=== PATIENT | female | born 1940 | race Caucasian/White ===

== ENCOUNTER → 2017-03-04 | Outpatient (CLI) | payer OTHER ==
[~2017-03-04] MED LIST: ACET-1311 PO; ASPI81TA28 PO; CHOL400T; CYAN500T PO; MULT-506 PO; NRN/300 PO; OMEG10007 PO; vitamin d 3 PO
== END | disposition home or self-care (01) ==
LOC: C.LABMFLN 08:47
PROVIDERS: ATTEND Physician Assistant
DX: J02.9 Acute pharyngitis, unspecified (principal)

== ENCOUNTER → 2017-06-12 | Outpatient (CLI) | payer OTHER ==
[2017-06-12 13:37] LABS: HEMATOCRIT 38.5 % (37-47); MEAN CELL VOLUME 100.5 fL (80-100); MEAN CORPUSCULAR HEMOGLOBIN 35.8 pg (25-34); MEAN CORPUSCULAR HGB CONC 35.6 g/dl (32-36); MEAN PLATELET VOLUME 11.5 fL (7.4-10.4); PLATELET COUNT 205 K/uL (130-400); RED BLOOD COUNT 3.83 M/uL (4.2-5.4); WHITE BLOOD COUNT 5.27 K/uL (4.8-10.8)
[2017-06-12 13:43] LABS: ALT/SGPT 21 U/L (12-78); AST/SGOT 22 U/L (15-37); BLOOD UREA NITROGEN 14 mg/dl (7-18); BUN/CREATININE RATIO 21.4 (10-20); CALCIUM 8.7 mg/dl (8.5-10.1); CARBON DIOXIDE 28 mmol/L (21-32); CHLORIDE 109 mmol/L (98-107); CREATININE 0.67 mg/dl (0.60-1.20); GLUCOSE 86 mg/dl (70-99); POTASSIUM 4.2 mmol/L (3.5-5.1); SODIUM 143 mmol/L (136-145)
[2017-06-12 13:54] LABS: ALKALINE PHOSPHATASE 88 U/L (45-117); CHOLESTEROL 243 mg/dl (0-200); CHOLESTEROL/HDL RATIO 3.9; HDL CHOLESTEROL 62 mg/dl; LDL CHOLESTEROL CALCULATED 160 mg/dl; TRIGLYCERIDES 105 mg/dl (0-150); VERY LOW DENSITY LIPOPROT CALC 21 mg/dl
[2017-06-12 13:58] LABS: COMPLETE YES; EOSINOPHIL % 1.7 %; LYMPH ABS # 1.65 K/uL (1.2-3.4); LYMPHOCYTE % 31.3 %; NEUTROPHILS % 35.7 %; ROULEAUX 1+; VARIANT LYM ABS # 1.33 K/uL; VARIANT LYMPHOCYTE % 25.2 %
== END | disposition home or self-care (01) ==
LOC: C.LABMFLN 08:55
PROVIDERS: ATTEND Family Medicine
DX: G60.9 Hereditary and idiopathic neuropathy, unspecified (principal); E78.5 Hyperlipidemia, unspecified

== ENCOUNTER → 2017-06-17 | Outpatient (CLI) | payer OTHER ==
--- NOTE | 2017-06-25 13:03 | CODING QUERY MEDICAL NECESSITY ---
SUPPORTING DIAGNOSIS NEEDED A supporting diagnosis is required for the test/procedure performed on this patient in order for us to be reimbursed by the patient's insurance. Please provide a supporting diagnosis for the following test/procedure listed below next to the test name along with your signature. *If there is no additional diagnosis for this patient that would support the following test/procedure please document that below next to the test/procedure. Test(s)/Procedure(s) that require a supporting diagnosis: * VITAMIN B12 DIAGNOSIS: * FOLIC ACID DIAGNOSIS: Provider Signature: Date: Thank you Fabienne [place] [employer] Once completed, please kindly fax back to [phone] For questions please call [phone]
== END | disposition home or self-care (01) ==
LOC: C.LABMFLN 09:10
PROVIDERS: ATTEND Family Medicine
DX: D75.89 Other specified diseases of blood and blood-forming organs (principal)

== ENCOUNTER 2022-08-22 09:08 | Observation (INO) ==
--- NOTE | 2022-07-15 16:03 | PAT Medication Instructions ---
Medication Instructions Date of Service July 15, 2022 Home Medications Medication Instructions Recorded cholecalciferol (vitamin D3) 25 1,000 units PO DAILY #90 tabs 06/20/19 mcg (1,000 unit) tablet cyanocobalamin (vitamin B-12) 500 500 mcg PO DAILY #90 tabs 06/20/19 mcg tablet multivitamin (Multiple Vitamins 1 tab PO DAILY #90 tabs 06/20/19 tablet) omega-3 acid ethyl esters 1 gram 2 cap PO DAILY #180 caps 06/20/19 capsule gabapentin 300 mg capsule 300 mg PO BID #180 caps 04/29/22 cholecalciferol (vitamin D3) 25 mcg (1,000 unit) tablet 1,000 units PO DAILY cyanocobalamin (vitamin B-12) 500 mcg tablet 500 mcg PO DAILY multivitamin (Multiple Vitamins tablet) 1 tab PO DAILY omega-3 acid ethyl esters 1 gram capsule 2 cap PO DAILY acetaminophen 500 mg tablet 500 - 1,000 mg PO BID PRN gabapentin 300 mg capsule 300 mg PO BID STOP taking 2 weeks before surgery omega-3 acid ethyl esters 1 gram capsule 2 cap PO DAILY DO NOT take the morning of surgery cholecalciferol (vitamin D3) 25 mcg (1,000 unit) tablet 1,000 units PO DAILY cyanocobalamin (vitamin B-12) 500 mcg tablet 500 mcg PO DAILY multivitamin (Multiple Vitamins tablet) 1 tab PO DAILY Take morning of surgery With a small sip of water, OTHERWISE NOTHING TO EAT OR DRINK AFTER MIDNIGHT: acetaminophen 500 mg tablet 500 - 1,000 mg PO BID PRN(if needed) gabapentin 300 mg capsule 300 mg PO BID Take evening before surgery acetaminophen 500 mg tablet 500 - 1,000 mg PO BID PRN(if needed) gabapentin 300 mg capsule 300 mg PO BID Other Notes If you have any questions please call us at [phone] or [phone] or [phone] or [phone]
--- NOTE | 2022-07-22 11:31 | Anesthesiology Consultation ---
Date of Service July 22, 2022 Assessment & Plan (1) Encounter for pre-operative examination: - COVID screening: Per assessment on 07/22: No known COVID-19 positive contacts or current COVID-19 related symptoms. Travel screen negative. Patient vaccinated. At surgeon discretion if preop Covid testing being done. - Outpatient joint assessment: Pt currently scheduled for inpatient pathway. If surgeon requests review for outpatient joint pathway, patient is not recommended candidate for outpatient joint program. Chart Review Chart Review: Acceptable Risk for Surgery and Patient seen in Pre Admission Testing Teaching & Discussion Pre-Anesthesia Teaching/Discussion Notes: Instructed NPO after midnight before surgery,except medications with 15 cc of water. Medication instructions provided according to the PAT guidelines. History Surgery Operation Date: 08/22/22 07:00 Proposed Procedures p Right Total Shoulder Arthroplasty Reverse - Karlos Land DO Height/Weight Height: 5 ft 5 in Weight: 84.1 kg Allergies Allergy/AdvReac Type Severity Reaction Status Date / Time morphine Allergy Severe Shortness Verified 07/21/22 12:33 of breath azithromycin [From Zithromax] Allergy Mild Rash Verified 07/15/22 12:17 NSAIDS (Non-Steroidal Allergy Mild Rash Verified 07/15/22 12:17 Anti-Inflamma atorvastatin [From Lipitor] AdvReac Mild Muscle Pain Verified 07/15/22 12:17 simvastatin AdvReac Mild Muscle Verified 07/21/22 12:33 aches Medications Home Medications Medication Instructions Recorded Confirmed Last Taken cholecalciferol (vitamin D3) 25 1,000 units PO DAILY #90 tabs 06/20/19 07/15/22 Unknown mcg (1,000 unit) tablet cyanocobalamin (vitamin B-12) 500 500 mcg PO DAILY #90 tabs 06/20/19 07/15/22 Unknown mcg tablet multivitamin (Multiple Vitamins 1 tab PO DAILY #90 tabs 06/20/19 07/15/22 Unknown tablet) omega-3 acid ethyl esters 1 gram 2 cap PO DAILY #180 caps 06/20/19 07/15/22 Unknown capsule acetaminophen 500 mg tablet 500 - 1,000 mg PO BID PRN Pain 02/28/21 07/15/22 Unknown gabapentin 300 mg capsule 300 mg PO BID #180 caps 04/29/22 07/15/22 Unknown Past Medical History Medical History Essential tremor Right hand Fibromyalgia Generalized osteoarthritis of multiple sites H/O deep venous thrombosis 2007 post-op (b/l TKA) > was on coumadin for period of time (since discontinued) History of COVID-19 Dx 03/26/2022, no current issues History of pulmonary embolism 2007 post-op (b/l TKA) > was on coumadin for period of time (since discontinued) History of skin cancer Forehead Hyperlipidemia Idiopathic peripheral neuropathy Mitral regurgitation Dx rheumatic fever as child Hx MVP but not visualized on most recent 2020 echo, trivial MR noted Exercise / Class Metabolic Activity II 4-5 Yardwork/Stairs/Walk up hill (one FS (No CP, no SOB)) Past Family History Family History Father Diabetes Mother Breast cancer Other No family history of adverse response to anesthesia Past Surgical History Surgical History H/O colonoscopy History of tonsillectomy History of tooth extraction History of total bilateral knee replacement Nausea after anesthesia S/P appendectomy S/P cataract extraction RT/LEFT S/P cholecystectomy S/P tubal ligation Past Anesthesia History No Hx of Anesthesia Complications (except remote post-op nausea) and No Family Hx of Anesthesia Complications History of PONV History of PONV (remote post-op nausea) and Hx of Motion Sickness (Remote hx) Social History Smoking Status: Never smoker Do You Dip or Chew Tobacco: No Hx Alcohol Use: Yes Alcohol type: beer alcohol intake frequency: holidays/special occasions only Hx Substance Use: No substance use type: does not use Review of Systems Patient denies chest pain, shortness of breath, dyspnea on exertion, fever, chills, cough, wheezing, palpitations. Physical Exam Vital Signs VITALS BP 102/69 (bp typically low-normal range per pt) P 69 TEMP 98.3 SP02 93%RA RESP 16 PHYSICAL Full cervical extension range of motion. Full TMJ range of motion. TMD 3 finger breaths Mallampati Score 2 Dentition: intact, implants (molars) Lungs: clear throughout to auscultation Cardiac: regular rate and rhythm, II/ systolic murmur Spine: normal Carotid arteries: negative bruit Extremities: no edema Right hand tremor Lab Results Anesthesia Preop Results Results Anesthesia Widget: WBC 6.59 K/ul (4.8-10.8) 07/22/22 Hgb 13.9 g/dl (12.0-16.0) 07/22/22 Hct 42.4 % (34.1-44.9) 07/22/22 Plt 243 K/uL (130-400) 07/22/22 Na 140 mmol/L (136-145) 07/22/22 K 5.0 mmol/L (3.5-5.1) 07/22/22 Cl 106 mmol/L (98-107) 07/22/22 CO2 30 mmol/L (21-32) 07/22/22 BUN 19 mg/dl (6-23) 07/22/22 Creat 0.76 mg/dl (0.6-1.2) 07/22/22 Glucose Level 80 mg/dl (70-99(Fasting)) 07/22/22 PT 10.1 Seconds (9.0-12.0) 07/22/22 PTT 24.5 Seconds (21.0-31.0) 07/22/22 INR 0.9 (0.9-1.1) 07/22/22 Blood Type B Positive 07/22/22 Antibody Screen NEGATIVE 07/22/22 Testing Electrocardiogram Date: 07/22/22 NSR at 65bpm. Chest X-Ray Date: 07/22/22 Findings: + NAD Echocardiogram Date: 03/15/21 EF 65 to 70%. No regional wall motion abnormality. AV sclerosis. Compared to prior study 06/18/2017, mitral prolapse is not visualized on current study and MR now appears trivial. Grade 1 diastolic dysfunction. COVID-19 Risk Screen Screening Information COVID-19 Screen Date: 07/22/22 Exposure 21 Days Family/Household +COVID Last 21 Days: No Exposure 10 Days Any COVID Exposure Last 10 Days: No Symptoms Last 10 Days Experienced COVID Sx Last 10 Days: No + COVID 0-90 Days COVID + in Last 0-90 Days: No
--- NOTE | 2022-08-21 08:27 | History & Physical Report ---
Date of Service August 21, 2022 Assessment & Plan (1) Rotator cuff tear arthropathy of right shoulder: We will proceed with a right reverse shoulder arthroplasty. Postoperatively she will be placed in a sling and kept overnight in the hospital for postop medical management. She plans to use [facility] upon discharge. History of Present Illness Chief Complaint: Cuff tear arthropathy of the right shoulder. Primary Care Provider: Courtney Ibarra MD Charla is a pleasant 81-year-old female whohas been dealing with chronic worsening right shoulder pain. We have an MRI which shows cuff arthropathy. I have been giving her serial injections. The injections are not helping as much anymore. She is having trouble doing activities away from her body or up overhead. She is really struggling with the right shoulder. After failing extensive conservative treatment, she has elected to proceed with a right reverse shoulder arthroplasty. Allergies Allergy/AdvReac Type Severity Reaction Status Date / Time morphine Allergy Severe Shortness Verified 07/21/22 12:33 of breath azithromycin [From Zithromax] Allergy Mild Rash Verified 07/15/22 12:17 NSAIDS (Non-Steroidal Allergy Mild Rash Verified 07/15/22 12:17 Anti-Inflamma atorvastatin [From Lipitor] AdvReac Mild Muscle Pain Verified 07/15/22 12:17 simvastatin AdvReac Mild Muscle Verified 07/21/22 12:33 aches Home Medications Medication Instructions Recorded Confirmed Type cholecalciferol (vitamin D3) 25 1,000 units PO DAILY #90 tabs 06/20/19 07/15/22 Rx mcg (1,000 unit) tablet cyanocobalamin (vitamin B-12) 500 500 mcg PO DAILY #90 tabs 06/20/19 07/15/22 Rx mcg tablet multivitamin (Multiple Vitamins 1 tab PO DAILY #90 tabs 06/20/19 07/15/22 Rx tablet) omega-3 acid ethyl esters 1 gram 2 cap PO DAILY #180 caps 06/20/19 07/15/22 Rx capsule acetaminophen 500 mg tablet 500 - 1,000 mg PO BID PRN Pain 02/28/21 07/15/22 History gabapentin 300 mg capsule 300 mg PO BID #180 caps 04/29/22 07/15/22 Rx Past Med/Surg History Medical History Essential tremor Right hand Fibromyalgia Generalized osteoarthritis of multiple sites H/O deep venous thrombosis 2007 post-op (b/l TKA) > was on coumadin for period of time (since discontinued) History of COVID-19 Dx 03/26/2022, no current issues History of pulmonary embolism 2007 post-op (b/l TKA) > was on coumadin for period of time (since discontinued) History of skin cancer Forehead Hyperlipidemia Idiopathic peripheral neuropathy Mitral regurgitation Dx rheumatic fever as child Hx MVP but not visualized on most recent 2020 echo, trivial MR noted Surgical History H/O colonoscopy History of tonsillectomy History of tooth extraction History of total bilateral knee replacement Nausea after anesthesia S/P appendectomy S/P cataract extraction RT/LEFT S/P cholecystectomy S/P tubal ligation Family History Father Diabetes Mother Breast cancer Other No family history of adverse response to anesthesia Social History Smoking Status: Never smoker Second Hand Exposure: No; Hx Alcohol Use: Yes Alcohol type: beer Alcohol Intake Frequency Comment: occasionally Hx Substance Use: No Preferred Language: Mongolian Reel Tender Required: No Beliefs That Will Affect Care: None marital status: Current Living Situation: Spouse Feels Safe at Home: Yes Dental Care, Regularly: Yes Physical Activity Frequency: 3-4 Times per Week Physical Activity Frequency Comment: aerobics, swimming Seatbelt Use: always Review of Systems All systems reviewed & are unremarkable except as noted in HPI & below. Physical Exam On physical examination of the right shoulder, she has about 140 degrees of forward elevation 140 degrees of abduction. She has 4-5 motion at the full can test and external rotation. Pain over the glenohumeral joint line.. Constitutional WD/WN, vitals as above Eyes PERRL, conjunctivae normal, anicteric sclerae ENMT external ear and nose normal, oropharynx normal Neck trachea midline, no thyromegaly Respiratory normal respiratory effort, lungs clear to auscultation Cardiovascular RRR, no murmur, no edema Gastrointestinal (Abdomen) normal bowel sounds, soft, nontender, no hepatosplenomegaly Skin no rashes, warm and dry Psychiatric A+Ox3, euthymic affect Results & Data Results & Data Laboratory Results . Diagnostic Findings X-rays of the right shoulder show slight superior migration of the humeral head on the glenoid. There is some osteoarthritis. MRI of the right shoulder shows a massive chronic retracted rotator cuff tear of the right shoulder.. PG Care Time/CCT Total # of Minutes Spent Total Time Spent with Patient: Total time spent is greater than 50% in coordination of care (as documented) at patient's floor/unit and/or counseling patient: Coding Level of Care Code None Diagnoses Rotator cuff tear arthropathy of right shoulder M75.101; M12.811
[~2022-08-22 09:08] MED LIST changes: -ACET-1311 PO; +ACETAMINOPHEN 500 MG TAB PO SCH; -ASPI81TA28 PO; +BUPIVACAINE 0.5 % 5 MG/1 ML PF 10ML VIAL ONE; -CHOL400T; -CYAN500T PO; +FAMOTIDINE 20 MG TAB PO SCH; +GABAPENTIN 300 MG CAP PO SCH; +LR 15ML/HR IV SCH; +LR 60ML/HR IV SCH; -MULT-506 PO; -NRN/300 PO; -OMEG10007 PO; +ORTHO JOINT MIX INFIL SCH; +TRANEXAMIC ACID 1,000 MG **IV Intra-op IV SCH; +TRANEXAMIC ACID 1,000 MG **IV Pre-op IV SCH; +[UNRECOGNIZED DRUG - REMARK] SCH; +ceFAZolin 2000MG 2,000 MG/15 ML SYR IV SCH; +dexAMETHasone 4 MG TAB PO SCH; -vitamin d 3 PO
[2022-08-22] MEDS ORDERED: PROPOFOL IV EMULSION 10 MG/ML 20 ML VIAL IV ONE (10:15)
[2022-08-22] MEDS ORDERED: DEXAMETHASONE SOD INJ 4 MG/ML VIAL ONE (10:15)
[2022-08-22] MEDS ORDERED: KETOROLAC 30 MG/ML VIAL ONE (10:15)
[2022-08-22] MEDS ORDERED: ONDANSETRON INJ 2 MG/ML 2 ML VIAL ONE (10:15)
[2022-08-22] MEDS ORDERED: GLYCOPYRROLATE 0.2 MG/ML VIAL ONE (10:15)
[2022-08-22] MEDS ORDERED: fentaNYL citrate 100 MCG/2 ML VIAL ONE (10:15)
[2022-08-22] MEDS ORDERED: MIDAZOLAM HCL 1 MG/ML 2ML VIAL ONE (10:15)
[2022-08-22] MEDS ORDERED: LIDOCAINE 2% MPF LOCAL 5 ML VIAL INFIL ONE (10:15)
--- NOTE | 2022-08-22 10:55 | History & Physical Bridge Note ---
Date of Service August 22, 2022 History & Physical Bridge Note I have examined the patient, reviewed the History & Physical and in the interval since the performance of the History & Physical I have noted the following changes of clinical significance: no changes noted
[2022-08-22] MEDS ORDERED: fentaNYL citrate 100 MCG/2 ML VIAL IV PRN (11:07)
[2022-08-22] MEDS ORDERED: ONDANSETRON INJ 2 MG/ML 2 ML VIAL IV PRN ×2 (11:07→14:48)
[2022-08-22] MEDS ORDERED: ePHEDrine sulfate 50 MG/ML AMP IV PRN (11:07)
[2022-08-22] MEDS ORDERED: ATROPINE SULFATE 0.1 MG/ML 10ML SYR IV PRN (11:07)
[2022-08-22] MEDS ORDERED: ORTHO JOINT ANESTHETIC ONE (11:25)
[2022-08-22] MEDS ORDERED: ePHEDrine sulfate 50 MG/ML SYR ONE (12:18)
--- NOTE | 2022-08-22 12:59 | Operative Report ---
PG Post Operative Report Pre & Post Diagnosis Operation Date: 08/22/22 11:40 Pre-Op Diagnosis: Cuff tear arthropathy of the right shoulder with tendinopathy of the long head of the biceps tendon Post-Op Diagnosis: Cuff tear arthropathy of the right shoulder with tendinopathy long head of the biceps tendon I identified the patient and participated in the time-out.: Yes Procedure Operation Date: 08/22/22 11:40 Actual Procedures p Right Reverse Total Shoulder Arthroplasty, Uncemented(Right) with open biceps tenodesis as a distinct and separate procedure (modifier 59)- Karlos Land DO Surgeon Karlos Land DO Merchandising Coordinator Karlos Jonas PA-C Estimated Blood Loss 150 Findings Consistent with Post-Op Diagnosis Specimens Right humeral head Description of Procedure A CPT code modifier 59: The long head of the biceps tendon was enlarged and inflamed consistent with tendinopathy. A tenodesis was opted. This was a separate and distinct portion of the procedure. For these reasons, a CPT code modifier 59 will be added to this case. Implants used: I used a [employer] Comprehensive reverse total shoulder arthroplasty system with a size 10 press fit micro humeral stem, a +6 offset humeral tray and a standard humeral bearing, a 25 mm small augment baseplate with a 6.5 mm central screw and superior and inferior locking screws, and a size 36 mm eccentric glenosphere. Charla arrived at [facility] for the above procedure. She was seen in the preoperative holding area and the operative extremity was identified and signed. She was given a preoperative antibiotic, TXA, and an interscalene nerve block. She was taken back to the operating room, laid on table in supine po sition, and put under general anesthesia. She was then put into the beachchair position. The shoulder was then prepped and draped in sterile fashion. A timeout was done and the patient and the operative extremity was properly identified. A deltopectoral approach was used. Dissection was taken down through the fascia and the deltoid was retracted laterally and the conjoined tendon was retracted medially. The anterior shoulder was exposed. The biceps groove was opened up and the biceps tendon was examined extensively. The biceps tendon demonstrated enlargement and inflammatory changes consistent with longstanding inflammation in the context of osteoarthritis and cuff arthropathy. The long head of the biceps tendon was then tenodesed to the upper border of the pectoralis major. This was a separate and distinct portion of the procedure. The subscapularis was then directly released off the lesser tuberosity with a peel technique. The inferior capsule was released and the humeral head was dislocated. A canal finding reamer was sent down the center of the humeral canal. Sequential reaming up to a size 10 reamer was done. Off that reamer, a proximal humeral resection guide was placed. The proximal humerus was resected at 135 of inclination and 25 of retroversion. Osteophytes were then removed and the glenoid was exposed. Time was spent doing a complete capsular and labral release. The glenoid guide was then placed in the inferior aspect of the glenoid. A 3.2 mm Steinmann pin was then placed into the glenoid vault at 10 of inclination. The glenoid baseplate was then reamed. The final size 25 mm small augment baseplate was then impacted in the place. A 6.5 mm central screw was then placed followed by superior and inferior locking screws. A 36 mm eccentric glenosphere was then impacted into place. Surrounding soft tissues were then injected with 100 cc an orthopedic pain control cocktail. The proximal humerus was then exposed. Sequential broaching of the humerus up to a size 10 broach was done. Off that broach a +6 offset humeral tray was trialed. The shoulder was then reduced, brought through a full range of motion, and felt to be stable. The shoulder was then dislocated and the broach was removed. The final size 10 micro press-fit humeral stem was then impacted into place. A standard humeral bearing was then snapped onto a +6 offset humeral tray. The humeral tray was then impacted onto the humeral stem. The shoulder was once again reduced, brought through a full range of motion, and felt to be stable. The subscapularis was then tenodesed back to the lesser tuberosity with transosseous FiberWire sutures and side to side sutures with the arm in 45 of external rotation. A dilute betadyne lavage was then done for 3 minutes. The joint was then irrigated with normal saline solution. Hemostasis was obtained. The interval was closed with 2-0 Vicryl suture. The skin was then closed with 2-0 Vicryl and isra. A Silverlon dressing was placed and the arm was rested in a regular arm sling. She was then extubated and transferred to a hospital bed. She taken to the postanesthesia care unit in stable condition. She tolerated the procedure well. Karlos Jonas PA-C, was present for the entire procedure. He was critical for patient positioning, prepping, draping, retraction exposure, wound closure and application of sterile dressing. I attest to the content of the Intraoperative Record and any orders documented therein. Any exceptions are noted below.
--- NOTE | 2022-08-22 13:39 | Anesthesiology Progress Note ---
Date of Service August 22, 2022 Anesthesia Post Procedure Vital Signs Vital Signs: Temp Pulse Resp BP Pulse Ox O2 Del Method 08/22/22 09:59 98.1 F 77 18 131/73 95 Room Air Pain Intensity Right Arm: Pain Intensity: 5 Transfer of Care Handoff Completed per policy Notes Mental Status: alert / awake / arousable and participated in evaluation Patient Amnestic to Procedure: Yes Nausea / Vomiting: adequately controlled Pain: adequately controlled Airway Patency, RR, SpO2: stable & adequate BP & HR: stable & adequate Hydration State: stable & adequate Anesthetic Complications: no major complications apparent and Pt Satisfied with anesthetic care
--- NOTE | 2022-08-22 13:52 | XRay Report ---
XR shoulder RT min 2V routine HISTORY: 81 years-old Female Post shoulder surgery right shoulder arthroplasty COMPARISON: Chest radiograph 07/22/2022 TECHNIQUE: 2 views of the right shoulder FINDINGS: Reverse right shoulder total joint arthroplasty. Overlying skin isra are noted along with expected postoperative soft tissue swelling with deep tissue air. Moderate degeneration of the AC joint. No a cute fracture or unexpected opaque foreign body. IMPRESSION: Reverse total joint arthroplasty with expected postoperative changes. ACT 112: Negative or not required by law. The above report was generated using voice recognition software. It may contain grammatical, syntax o r spelling errors. Electronically signed by: Jace Armando M.D. 08/22/2022 1:50 PM
[2022-08-22] MEDS ORDERED: KETOROLAC TROMETHAMINE 15 MG/ML VIAL IV SCH (14:48)
[2022-08-22] MEDS ORDERED: NALOXONE HCL 0.4 MG/1 ML VIAL/CARP IV PRN (14:48)
[2022-08-22] MEDS ORDERED: MAGNESIUM HYDROXIDE SUSP 30 ML UDC PO PRN (14:48)
[2022-08-22] MEDS ORDERED: METOCLOPRAMIDE HCL INJ 5 MG/ML 2 ML VIAL IV PRN (14:48)
[2022-08-22] MEDS ORDERED: oxyCODONE HCL IR 5 MG TAB (IMMEDIATE RELEASE) PO PRN (14:48)
[2022-08-22] MEDS ORDERED: HYDROmorphone INJ 0.5 MG/0.5 ML SYR IV PRN (14:48)
[2022-08-22] MEDS ORDERED: bisacodyL 10 MG SUPP PR PRN (14:48)
[2022-08-22] MEDS ORDERED: traMADol HCL 50 MG TABLET PO PRN (15:14)
[2022-08-22] MEDS: SODIUM CHLORIDE 0.9% 1000ML 1,000 ML IV SCH (15:29)
[2022-08-22] MEDS ORDERED: COUGH DROP (SUGAR FREE) LOZ 24 LOZ/1 BOX BUCCAL PRN (18:32)
[2022-08-22] MEDS: ceFAZolin 2000MG 2,000 MG/15 ML SYR IV SCH (18:33)
[2022-08-22] MEDS: ACETAMINOPHEN 500 MG TAB PO SCH (18:33)
[2022-08-22] MEDS ORDERED: SENNA 8.6 MG TAB PO SCH (21:00)
[2022-08-22] MEDS: DOCUSATE SODIUM 100 MG CAP PO SCH (21:59)
[2022-08-22] MEDS: GABAPENTIN 300 MG CAP PO SCH (22:00)
[2022-08-23] MEDS: ACETAMINOPHEN 500 MG TAB PO SCH ×2 (01:29→09:41)
[2022-08-23] MEDS: SODIUM CHLORIDE 0.9% 1000ML 1,000 ML IV SCH (01:29)
[2022-08-23] MEDS: ceFAZolin 2000MG 2,000 MG/15 ML SYR IV SCH (03:09)
[2022-08-23] MEDS ORDERED: dexAMETHasone 4 MG TAB PO SCH (08:00)
--- NOTE | 2022-08-23 08:55 | Orthopedic Progress Note ---
Date of Service August 23, 2022 Assessment & Plan (1) Status post reverse total replacement of right shoulder: Overall she is doing well. She is not having much pain in the right shoulder. She will be seen by physical therapy today for ambulation and range of motion exercises. She can be discharged home later today. She will follow-up with orthopedics in 2 weeks. Dana Dunham was seen and examined at bedside this morning. Overall she is doing very well. She is not having any pain in her right shoulder. She was able to get some sleep last night. She has no complaints.. Review of Systems All systems reviewed & are unremarkable except as noted in HPI & below. Physical Exam On physical examination of the right shoulder, the dressing is clean and dry. She is wearing her sling as instructed. She has active motion of her hand and wrist.. Results & Data Results & Data Laboratory Results . Diagnostic Findings Postoperative x-rays of the right shoulder show the prosthesis to be in anatomic alignment without any evidence of fracture, screws, or loosening. PG Care Time/CCT Total # of Minutes Spent Total Time Spent with Patient: Total time spent is greater than 50% in coordination of care (as documented) at patient's floor/unit and/or counseling patient: Coding Level of Care Code 05893 Post Operative Follow-Up Diagnoses Status post reverse total replacement of right shoulder Z96.611
--- NOTE | 2022-08-23 08:56 | Discharge Summary ---
Date of Service August 23, 2022 Admission HPI (Per Admitting) Charla is a pleasant 81-year-old female whohas been dealing with chronic worsening right shoulder pain. We have an MRI which shows cuff arthropathy. I have been giving her serial injections. The injections are not helping as much anymore. She is having trouble doing activities away from her body or up overhead. She is really struggling with the right shoulder. After failing extensive conservative treatment, she has elected to proceed with a right reverse shoulder arthroplasty. Admission Exam (Per Admitting) On physical examination of the right shoulder, she has about 140 degrees of forward elevation 140 degrees of abduction. She has 4-5 motion at the full can test and external rotation. Pain over the glenohumeral joint line.. Principal Diagnosis Same as "Discharge Diagnosis" noted below under Discharge Instructions. Discharge Exam On physical examination of the right shoulder, the dressing is clean and dry. She is wearing her sling as instructed. She has active motion of her hand and wrist.. Discharge Data Procedures Performed Operation Date: 08/22/22 11:40 Actual Procedures p Right Reverse Total Shoulder Arthroplasty, Uncemented(Right) - Karlos Land DO Ordered Studies 08/22/22 05:00 US - OR guided needle placemen Routine Hospital Course (1) Status post reverse total replacement of right shoulder: On August 22, 2022 Charla arrived at [facility] and underwent a right reverse shoulder replacement without complication. She had a general anesthetic and a right interscalene nerve block. Postoperatively she was placed in a sling and transferred to the general orthopedic floors. Her hospital course was uneventful. On postop day #1, her vital signs were stable and her pain was well controlled. She was able to participate well with physical therapy doing ambulation and range of motion exercises. She was then discharged home. She will follow-up with orthopedics in 2 weeks. PG Care Time/CCT Total # of Minutes Spent Total Time Spent with Patient: Total time spent is greater than 50% in coordination of care (as documented) at patient's floor/unit and/or counseling patient: Discharge Plan Discharge Items Patient Disposition: Home - Home Health Services Reason For Visit: Right Shoulder Degenerative Joint Disease Discharge Diagnosis: Right reverse shoulder replacement Activity: Per Instructions section Non-emergency contact: Surgeon Call non-emergency contact if: your wound has increased redness and your wound has increased drainage Follow-up/Referrals: Courtney Ibarra MD [Primary Care Provider] - Diet: Regular Addtl Attending Provider Instructions: Activity and Therapy Recommendations: * If you are using [facility] then therapy will be provided at your home until they feel you have accomplished all of your goals. * If you are using [facility] then Physical Therapy will be provided until they feel you are ready to start Outpatient Physical Therapy. * If you are not using home therapy then Outpatient Physical Therapy should start about 3-5 days from your day of surgery. Therapy will last about 8-12 weeks * Wear your sling for 3 weeks, unless otherwise instructed. You may remove your sling to shower and to dress, but otherwise, you should be in your sling at all times, including while sleeping * The shoulder replacement is very stable and you can use your hand while in the sling * You were shown a series of exercises in the hospital. Do these exercises daily including the exercises you were shown in physical therapy. Medications: * Narcotic You will likely be sent home from the hospital with a prescription for the narcotic pain medication that worked best throughout your stay. * Other medications may be prescribed for specific circumstances. If you have any questions, please call the office at . * Resume previous home medications unless otherwise instructed Dressing Care: Leave the Silverlon dressing in place for 7 days. After 7 days you may remove the dressing. If the incision is not draining then you may leave the isra open to air. If there is a little bit of drainage or if the isra are getting stuck on your clothing then cover the incision with a dry dressing. The isra will be removed at your 2 week follow-up appointment. Showering: You may shower with the Silverlon dressing in place. Do not let the shower spray hit the dressing directly. Pat the Silverlon dressing dry. If the dressing becomes wet underneath, then simply remove the dressing. Keep the incision dry until you are 7 days out from the day of surgery. After 7 days you may remove the Silverlon dressing and shower with the isra exposed. Let soapy water run over the isra and pat them dry. Do not scrub or soak the incision. Things To Watch For: * Drainage from the incision site that occurs more than one week after your surgery. * Increased redness at the incision site. * Fever above 102 degrees Fahrenheit. * Unusual chest pain or shortness of breath. * Call [facility] at with any of the above problems Follow-Up Visit: Follow-up with Dr. Land's PA (Karlos Jonas) 2-3 weeks after your day of surgery. He will remove your isra and answer any questions. If you have any additional questions or concerns, Dr Land is usually in the office at the same time and will be available An appointment was probably scheduled when you signed-up for surgery in the office. If you have any questions call More detailed instructions as well as Frequently Asked Questions were provided in a folder by our office when you signed-up for surgery. Please review these instructions when you get home. If you have any further questions or concerns, please feel free to call the office at [phone] Pending Studies at Discharge: No Stand-Alone Forms: My [facility] Medications and DC Order Prescriptions: New oxycodone-acetaminophen 5-325 mg tablet 1 tab PO Q6H PRN (Reason: pain) Qty: 30 0RF Continued gabapentin 300 mg capsule 300 mg PO BID Qty: 180 3RF cholecalciferol (vitamin D3) 1,000 unit (25 mcg) tablet 1,000 units PO DAILY Qty: 90 3RF Label Comments: takes qpm cyanocobalamin (vitamin B-12) 500 mcg tablet 500 mcg PO DAILY Qty: 90 3RF Label Comments: QPM multivitamin [Multiple Vitamins] tablet 1 tab PO DAILY Qty: 90 3RF Label Comments: QPM omega-3 acid ethyl esters 1 gram capsule 2 cap PO DAILY Qty: 180 3RF Label Comments: TAKES 1 CAP QPM acetaminophen 500 mg tablet 500 - 1,000 mg PO BID PRN (Reason: Pain) Discharge Orders: Discharge Order (Routine); Ordered 08/23/22 Ordered By: Karlos Land Admission Data Admit Date/Time: 08/22/22 13:18 Attending Provider: Karlos Land Admit Provider: Karlos Land Primary Care Provider: Courtney Ibarra
[2022-08-23] MEDS ORDERED: MULTIVITAMIN TAB PO SCH (09:00)
[2022-08-23] MEDS: DOCUSATE SODIUM 100 MG CAP PO SCH (09:39)
[2022-08-23] MEDS: GABAPENTIN 300 MG CAP PO SCH (09:40)
== END 2022-08-23 14:14 | disposition home health service (06) ==
LOC: ASU 09:08 → 3E 09:08